=== PATIENT | female | born 1995 | race Caucasian/White ===

== ENCOUNTER 2017-11-06 11:22 | Emergency (ER) | payer MEDICAID ==
[~2017-11-06] VITALS: Ht 165.1 cm; Wt 53.5 kg
[2017-11-06 11:27] VITALS: BP_SYST 105
[2017-11-06] MEDS ORDERED: IBUPROFEN 800 MG TABLET PO ONE (11:45)
[2017-11-06 12:20] VITALS: BP_SYST 105
== END 2017-11-06 12:20 | disposition home or self-care (01) ==
LOC: SED 11:22
DX: B34.9 Viral infection, unspecified (principal); R09.81 Nasal congestion; R42 Dizziness and giddiness; M79.1 Myalgia; M41.9 Scoliosis, unspecified
CPT/HCPCS: 99283

== ENCOUNTER 2018-12-23 16:08 | Emergency (ER) | payer MEDICAID ==
[~2018-12-23] VITALS: Ht 165.1 cm; Wt 51.3 kg
[2018-12-23 16:20] VITALS: BP_SYST 122
[2018-12-23] MEDS ORDERED: KETOROLAC TROMETHAMINE 60 MG/2 ML VIAL IM ONE (17:00)
[2018-12-23 17:45] VITALS: BP_SYST 122
== END 2018-12-23 17:45 | disposition home or self-care (01) ==
LOC: SED 16:08
DX: H16.293 Other keratoconjunctivitis, bilateral (principal); N39.0 Urinary tract infection, site not specified; R51 Headache
CPT/HCPCS: 81002; 81025; 99283; J1885

== ENCOUNTER 2019-02-25 17:14 | Emergency (ER) | payer MEDICAID ==
[~2019-02-25] VITALS: Ht 165.1 cm; Wt 51.7 kg
[2019-02-25 17:56] VITALS: BP_SYST 115
--- NOTE | 2019-02-25 18:00 | NUR ---
Placed in room 4. Placed on media monitor, blood pressure machine and pulse oximeter. To gown for exam. Side rails up. Report given to JUAN MANUEL Chappell
--- NOTE | 2019-02-25 19:30 | NUR ---
Pt brought in by mother. Pt awake, alert, oriented x4. Pt states that she was at work today when she felt a short episode of dizziness, near-syncope. Pt states that she has never had episodes like this before. Pt denies palpitations, chest pain, nausea, vomiting, diarrhea, shortness of breath. Pt states that she is currently on her menses. Pt denies any other medical complaint at this time. Pt Vital signs stable, resting in ED bed with mother bedside.
--- NOTE | 2019-02-25 19:40 | NUR ---
ER at bedside examining patient.
[2019-02-25] MEDS ORDERED: NACL 0.9% 1,000 ML IV ONE (20:00)
--- NOTE | 2019-02-25 20:00 | NUR ---
# 18 gauge angiocath placed to LAC. Use of asceptic technique. Opsite placed over site. Blood return noted. Blood for lab drawn from site. Flushed with 10 cc of normal saline. No evidence of infiltration noted. Patient tolerated well.
[2019-02-25 20:32] LABS: BASOPHILS # (AUTO) 0.1 K/uL (0.0-0.2); EOSINOPHILS # (AUTO) 0.2 K/uL (0.0-0.4); EOSINOPHILS % (AUTO) 2.2 % (0.0-4.0); HEMATOCRIT 36.8 % (36-48); HEMOGLOBIN 12.8 g/dL (12.0-16.0); LYMPHOCYTES # (AUTO) 2.2 K/uL (1.0-5.5); LYMPHOCYTES % (AUTO) 24.2 % (20.5-51.5); MEAN CORPUSCULAR HEMOGLOBIN 34 pg (27-31); MEAN CORPUSCULAR HGB CONC 35 % (32-36); MEAN CORPUSCULAR VOLUME 97 fL (79.0-98.0); MONOCYTES # (AUTO) 0.8 K/uL (0.0-1.0); MONOCYTES % (AUTO) 8.3 % (1.7-9.3); NEUTROPHILS # (AUTO) 5.8 K/uL (1.8-7.7); NEUTROPHILS % (AUTO) 64.3 % (40.0-70.0); PLATELET COUNT (AUTO) 240 K/uL (130-430); WHITE BLOOD COUNT (AUTO) 9.1 K/uL (4.8-10.8)
[2019-02-25 20:37] LABS: CALCIUM 9.1 mg/dL (8.4-11.0); CREATININE 0.62 mg/dL (0.55-1.30); POTASSIUM 3.5 mmol/L (3.5-5.1)
[2019-02-25 20:44] LABS: ALBUMIN 4.3 g/dL (3.4-4.8); TOTAL BILIRUBIN 0.6 mg/dL (0.0-1.0)
--- NOTE | 2019-02-25 20:56 | NUR ---
EKG performed at by JUAN MANUEL Lester. Physician given copy of EKG for review.
[2019-02-25 21:15] LABS: BILIRUBIN,URINE NEGATIVE (NEGATIVE); BLOOD, URINE 3+ (NEGATIVE); CLARITY/URINE CLEAR (CLEAR); COLOR,URINE YELLOW (YELLOW); GLUCOSE,URINE NEGATIVE (NEGATIVE); KETONES,URINE NEGATIVE (NEGATIVE); LEUKOCYTE ESTERASE ,URINE TRACE (NEGATIVE); NITRITE, URINE NEGATIVE (NEGATIVE); PH,URINE 6.5 (5.0-8.0); PROTEIN URINE NEGATIVE (NEGATIVE); UROBILINOGEN,URINE 0.2 (0.2-1.0)
[2019-02-25 21:26] LABS: BACTERIA,URINE FEW /HPF (None Seen); WBC,URINE 0-3 /HPF (0-3)
--- NOTE | 2019-02-25 22:30 | NUR ---
Pt resting comfortably in ED bed. No distress at this time.
--- NOTE | 2019-02-25 22:35 | NUR ---
ED bedside explaining current test results and labs to patient
[2019-02-25] MEDS ORDERED: IBUPROFEN 600 MG TABLET PO ONE (23:15)
--- NOTE | 2019-02-25 23:16 | NUR ---
Pt given apple juice, warm blanket. Pt resting comfortably
--- NOTE | 2019-02-26 00:30 | NUR ---
Pt eating In-n-out with mother in ED room. no acute distress noted.
--- NOTE | 2019-02-26 01:20 | NUR ---
Report Called to Eve at [facility]/Telemetry. Pt going to Room 214, Bed 2
--- NOTE | 2019-02-26 01:21 | NUR ---
Patient to be transferred to [facility]. Is being transferred due to higher level of care. Receiving facility has accepting physician and available space. ER physician has signed transfer form. Patient or responsible constitution party has agreed to transfer and signed form. Patient belongings inventoried and will be sent with patient. Copy of nursing notes, lab reports, EKG, Physicians Orders and X-rays to be sent with patient. Report called to Eve at receiving facility. Receiving physician is Dr.James Burdick. Medic-[facility]/RSI on scene for transfer.
[2019-02-26 01:23] VITALS: BP_SYST 118
== END 2019-02-26 01:23 | disposition short-term general hospital (02) ==
LOC: SED 17:14
DX: I48.91 Unspecified atrial fibrillation (principal); N39.0 Urinary tract infection, site not specified; M41.9 Scoliosis, unspecified
CPT/HCPCS: 36415; 71045; 80053; 81000-TC; 81025; 84443-TC; 85025; 93005; 96360; 99285

== ENCOUNTER 2019-03-03 22:23 | Emergency (ER) | payer MEDICAID ==
[~2019-03-03] VITALS: Ht 165.1 cm; Wt 51.3 kg
[2019-03-03 22:47] VITALS: BP_SYST 105
--- NOTE | 2019-03-04 00:13 | NUR ---
Called in x 3, no answer
--- NOTE | 2019-03-04 00:13 | NUR ---
Patient left without being seen. No further treatment provided. ER MD aware
== END 2019-03-04 00:13 | disposition left against medical advice (07) ==
LOC: SED 22:23
DX: R07.89 Other chest pain (principal); Z53.21 Procedure and treatment not carried out due to patient leaving prior to being seen by health care provider
CPT/HCPCS: 93005

== ENCOUNTER 2022-09-05 10:02 | Emergency (ER) | payer MEDICAID ==
[~2022-09-05] VITALS: Ht 165.1 cm; Wt 56.7 kg
[2022-09-05 10:02] VITALS: BP_SYST 107
--- NOTE | 2022-09-05 10:04 | NUR ---
BROUGHT BACK TO BED #8 AND TRIAGED. REPORT GIVEN TO MACY
--- NOTE | 2022-09-05 10:15 | NUR ---
Pt brought by family, A&Ox4, pt presents to ER with pain/ burning with urination, skin pink and warm, cap refill <3, VSS, will cont to monitor.
--- NOTE | 2022-09-05 10:45 | NUR ---
Dr Swanson evaluating patient at bedside
--- NOTE | 2022-09-05 10:45 | NUR ---
Urine sent to the lab
[2022-09-05 11:00] LABS: BILIRUBIN,URINE NEGATIVE (NEGATIVE); BLOOD, URINE 1+ (NEGATIVE); CLARITY/URINE CLEAR (CLEAR); COLOR,URINE YELLOW (YELLOW); GLUCOSE,URINE NEGATIVE (NEGATIVE); KETONES,URINE NEGATIVE (NEGATIVE); LEUKOCYTE ESTERASE ,URINE NEGATIVE (NEGATIVE); NITRITE, URINE NEGATIVE (NEGATIVE); PROTEIN URINE NEGATIVE (NEGATIVE); UROBILINOGEN,URINE 0.2 (0.2-1.0)
[2022-09-05 11:09] LABS: RBC,URINE 0-3 /HPF (0-3); WBC,URINE 0-3 /HPF (0-3)
[2022-09-05 11:10] LABS: BACTERIA,URINE RARE /HPF (None Seen)
[2022-09-05] MEDS ORDERED: NITR-85 PO (11:18)
[2022-09-05] MEDS ORDERED: PHEN-726 PO (11:18)
[2022-09-05 11:28] VITALS: BP_SYST 107
--- NOTE | 2022-09-05 11:28 | NUR ---
Patient given written and verbal discharge instructions and verbalizes understanding. ER MD CHONG discussed with patient the results and treatment provided. Patient in stable condition. ID arm band removed. Rx of MACRIBID, PYRIDIUM given. Patient educated on pain management and to follow up with PMD. Pain Scale 3/10. Opportunity for questions provided and answered. Medication side effect fact sheet provided.
== END 2022-09-05 11:28 | disposition home or self-care (01) ==
LOC: SED 10:02
DX: N30.90 Cystitis, unspecified without hematuria (principal); R10.30 Lower abdominal pain, unspecified; R39.198 Other difficulties with micturition; R11.0 Nausea; Z79.899 Other long term (current) drug therapy
CPT/HCPCS: 81000; 81025; 99283